=== PATIENT | male | born 1950 | race African-American/Black ===

== ENCOUNTER 2018-11-11 12:23 | Outpatient (CLI) | payer MEDICARE, MEDICAID ==
[2018-11-11 13:24] LABS: ALANINE AMINOTRANSFERASE 35 U/L (12-78); ALBUMIN 3.8 G/DL (3.4-5.0); ALBUMIN/GLOBULIN RATIO 0.8 (1.0-2.7); ALKALINE PHOSPHATASE 161 U/L (46-116); ANION GAP 9 mmol/L (5-15); ASPARTATE AMINO TRANSFERASE 27 U/L (15-37); BILIRUBIN,TOTAL 0.3 MG/DL (0.2-1.0); BLOOD UREA NITROGEN 24 mg/dL (7-18); CALCIUM 8.8 MG/DL (8.5-10.1); CARBON DIOXIDE 30 MMOL/L (21-32); CHLORIDE 100 MMOL/L (98-107); CHOLESTEROL 221 MG/DL (< 200); CREATININE 1.6 MG/DL (0.55-1.30); HDL CHOLESTEROL 117 MG/DL (40-60); POTASSIUM 4.4 MMOL/L (3.5-5.1); SODIUM 139 MMOL/L (136-145); TRIGLYCERIDES 100 MG/DL (30-150)
== END 2018-11-11 14:23 | disposition home or self-care (01) ==
LOC: LAB 12:23 → EDBD 12:23 → LAB 14:23
DX: E03.9 Hypothyroidism, unspecified (principal); G40.909 Epilepsy, unspecified, not intractable, without status epilepticus; I11.0 Hypertensive heart disease with heart failure; R63.4 Abnormal weight loss; Z86.718 Personal history of other venous thrombosis and embolism
CPT/HCPCS: 36415; 80053; 80061; 84436; 84443

== ENCOUNTER 2018-11-16 08:50 | Outpatient (CLI) | payer MEDICARE, MEDICAID ==
--- NOTE | 2018-11-16 12:18 | Diagnostic Imaging Report ---
CLINICAL INDICATION:Weight loss, abdominal pain, chest pain TECHNIQUE: Patient ingested oral contrast . No IV contrast utilized, per referring physician request. Spiral acquisitions obtained through the Chest, abdomen, and pelvis. Multiplanar reconstructions were generated. Total dose length product 1121.19 mGycm. CTDIvol(s) 16.79 mGy. Radiation dose was minimized using automated exposure control COMPARISON: none FINDINGS Chest: Small focal areas of very faint groundglass opacity are seen in the right upper lobe and the posterior medial right lower lobe. Some atelectasis or scarring is seen in the left lung base. The lungs and pleural spaces are otherwise clear. No infiltrates, effusions, masses, or nodules demonstrated. The heart size is normal. No pericardial effusion. The right and left pulmonary arteries are somewhat ectatic. No mediastinal or hilar mass or adenopathy. The included portion of the thyroid is unremarkable. No axillary or chest wall mass or adenopathy. Unremarkable esophagus. The bones demonstrate mild degenerative thoracic spondylosis changes. Abdomen pelvis: There is mild rectal distention by feces. There is mild wall thickening of the sigmoid colon and rectum. Fluid is seen within the proximal colon. There is evidence of prior ascending colectomy, with evidence of an ileocolic anastomosis. Surgical clips are seen in the mesenteric root. There is very mild dilatation of the distal ileum at the staple line. Contrast is seen as far distally as the ileocolic anastomosis, and a small amount of contrast is entering the transverse colon. No small bowel distention otherwise. There is equivocal mild wall thickening of the terminal ileum. No small bowel wall thickening otherwise. No free or loculated intraperitoneal gas or fluid is evident. The stomach demonstrate equivocal mild wall thickening of the gastric antrum. There is also equivocal mild wall thickening of the proximal duodenum. Lack of IV contrast limits assessment of the solid organs. There are cholecystectomy clips. The liver demonstrates scattered punctate calcifications. No biliary ductal dilatation. The pancreas is unremarkable. The spleen contains a punctate calcification. The adrenals are unremarkable. The right kidney is unremarkable. The left kidney demonstrates a 3 cm cyst. There is an inferior vena cava filter in good position. No pelvic mass or adenopathy. There are a few prominent mesenteric root lymph nodes measuring up to 16 mm long axis dimension. No retroperitoneal mass or adenopathy. The bones are unremarkable IMPRESSION: Small focal areas of very faint groundglass opacity in the right upper lobe and right lower lobe. Nonspecific, could represent postinflammatory change, atelectasis, or minimal acute inflammation. No acute pulmonary pathology otherwise Mildly ectatic right left pulmonary arteries, could indicate pulmonary arterial hypertension Wall thickening and sigmoid colon and rectum, raises concern for colitis Equivocal mild wall thickening of the terminal ileum, could indicate enteritis, nonspecific as regards etiology. Equivocal mild wall thickening of the gastric antrum and duodenum, could indicate gastritis/duodenitis versus peptic ulcer disease if real. Evidence of prior ascending colectomy with ileocolic anastomosis. No evidence of bowel obstruction Prominent nonspecific mesenteric root lymph nodes. Other findings as noted, including inferior vena cava filter, left renal cyst, granulomatous calcifications within the liver and spleen, prior cholecystectomy The CT scanner at [facility] is accredited by the [employer] and the scans are performed using protocols designed to limit radiation exposure to as low as reasonably achievable to attain images of sufficient resolution adequate for diagnostic evaluation.
== END 2018-11-16 10:50 | disposition home or self-care (01) ==
LOC: CAT 08:50
DX: R63.4 Abnormal weight loss (principal); R10.9 Unspecified abdominal pain; R07.9 Chest pain, unspecified; N20.0 Calculus of kidney; Z90.49 Acquired absence of other specified parts of digestive tract; M47.9 Spondylosis, unspecified
CPT/HCPCS: 71250; 74176